=== PATIENT | female | born 1975 | race Caucasian/White ===

== ENCOUNTER → 2016-10-29 | Outpatient (CLI) | payer OTHER ==
[~2016-10-29] MED LIST: ASPIR 8181 MG PO; IMDUR ER TAB 6060 MG PO; LIPITOR TAB 2020 MG PO; LISINOPRIL20 MG PO; LOPRESSOR50 MG PO; LOSARTAN-HCTZ1 EACH PO; NITROSTAT0.4 MG SL; NORVASC 5 MG TAB5 MG PO; PLAVIX 75 MG TA75 MG PO; RANEXA500 MG PO; REMERON15 MG PO; TEGRETOL XR100 MG PO; WELLBUTRIN XL150 MG PO
== END ==
LOC: EMI 08:56
DX: R51 Headache (principal); R42 Dizziness and giddiness; M54.2 Cervicalgia
CPT/HCPCS: 70551

== ENCOUNTER → 2021-09-09 | Outpatient (CLI) | payer OTHER ==
[~2021-09-09] MED LIST changes: +ALBUTEROL2.5 MG/3 M INH; +BRILINTA 90 MG90 MG PO; +CETIRIZINE HCL5 MG PO; +CLOPIDOGREL75 MG PO; +COZAAR100 MG PO; +CRESTOR20 MG PO; +GINKGO BILOBA120 M1 PO; +HYDROCHLOROTH12.5 MG PO; +ISOSORBIDE MONO60 MG PO; +LIPITOR TAB 1010 MG PO; -LOSARTAN-HCTZ1 EACH PO; +NITROFURANTOIN100 MG PO; +PROAIR DIGIHAL90 MCG INH; +RANEXA1000 MG PO; +TRILEPTAL300 MG PO; +ZOFRAN ODT 4 MG4 MG PO; +[UNRECOGNIZED DRUG - REMARK]
[2021-09-09 13:31] LABS: HEMOGLOBIN 15.4 gm/dl (12.3-15.3); RED BLOOD COUNT 5.04 M/UL (4.00-5.10); WHITE BLOOD COUNT 14.8 K/UL (4.5-11.0)
[2021-09-09 13:54] LABS: BUN/CREATININE RATIO 17 (0-10)
== END ==
LOC: LAB 13:02
PROVIDERS: Internal Medicine Interventional Cardiology
DX: I10 Essential (primary) hypertension (principal); I25.119 Atherosclerotic heart disease of native coronary artery with unspecified angina pectoris; I21.9 Acute myocardial infarction, unspecified; I73.9 Peripheral vascular disease, unspecified; E78.5 Hyperlipidemia, unspecified; F41.9 Anxiety disorder, unspecified; F32.A Depression, unspecified; R00.2 Palpitations; R94.39 Abnormal result of other cardiovascular function study
CPT/HCPCS: 36415; 80048; 85025; 85610; 85730; 93005

== ENCOUNTER 2021-09-14 06:30 | Outpatient (CLI) | payer OTHER ==
[~2021-09-14] VITALS: Ht 165.1 cm; Wt 62.1 kg
[~2021-09-14 06:30] MED LIST changes: -ALBUTEROL2.5 MG/3 M INH; -CETIRIZINE HCL5 MG PO; -CLOPIDOGREL75 MG PO; -CRESTOR20 MG PO; -GINKGO BILOBA120 M1 PO; -HYDROCHLOROTH12.5 MG PO; -ISOSORBIDE MONO60 MG PO; -NITROFURANTOIN100 MG PO; -PROAIR DIGIHAL90 MCG INH; -ZOFRAN ODT 4 MG4 MG PO
[2021-09-14] MEDS ORDERED: ALBUTEROL2.5 MG/3 M INH (07:07)
[2021-09-14] MEDS ORDERED: CETIRIZINE HCL5 MG PO (07:09)
[2021-09-14] MEDS ORDERED: CLOPIDOGREL75 MG PO (07:12)
[2021-09-14] MEDS ORDERED: HYDROCHLOROTH12.5 MG PO ×2 (07:12→11:46)
[2021-09-14] MEDS ORDERED: ISOSORBIDE MONO60 MG PO (07:13)
[2021-09-14] MEDS ORDERED: NITROFURANTOIN100 MG PO (07:14)
[2021-09-14] MEDS ORDERED: ZOFRAN ODT 4 MG4 MG PO (07:15)
[2021-09-14] MEDS ORDERED: CRESTOR20 MG PO (07:16)
[2021-09-14] MEDS ORDERED: PROAIR DIGIHAL90 MCG INH (07:16)
[2021-09-14] MEDS ORDERED: GINKGO BILOBA120 M1 PO (07:17)
[2021-09-14 12:16] LABS: RED BLOOD COUNT 4.54 M/UL (4.00-5.10); WHITE BLOOD COUNT 8.1 K/UL (4.5-11.0)
[2021-09-14 12:57] LABS: BUN/CREATININE RATIO 14 (0-10)
[2021-09-15 02:11] LABS: RED BLOOD COUNT 4.25 M/UL (4.00-5.10); WHITE BLOOD COUNT 7.7 K/UL (4.5-11.0)
[2021-09-15 04:30] LABS: BUN/CREATININE RATIO 14 (0-10)
== END 2021-09-15 03:37 | disposition left against medical advice (07) ==
LOC: CATH 06:30 → PROG CARE 11:09 → CATH 09-15 03:37
PROVIDERS: Internal Medicine Interventional Cardiology
DX: T82.855A Stenosis of coronary artery stent, initial encounter (principal); Y71.2 Prosthetic and other implants, materials and accessory cardiovascular devices associated with adverse incidents; Y83.2 Surgical operation with anastomosis, bypass or graft as the cause of abnormal reaction of the patient, or of later complication, without mention of misadventure at the time of the procedure; I25.798 Atherosclerosis of other coronary artery bypass graft(s) with other forms of angina pectoris; F41.9 Anxiety disorder, unspecified; E78.00 Pure hypercholesterolemia, unspecified; I73.9 Peripheral vascular disease, unspecified; I10 Essential (primary) hypertension; F17.200 Nicotine dependence, unspecified, uncomplicated; I25.2 Old myocardial infarction; Z20.822 Contact with and (suspected) exposure to COVID-19; Z88.6 Allergy status to analgesic agent; Z88.5 Allergy status to narcotic agent; Z88.0 Allergy status to penicillin; Z88.8 Allergy status to other drugs, medicaments and biological substances; Z79.02 Long term (current) use of antithrombotics/antiplatelets; Z79.82 Long term (current) use of aspirin; Z82.49 Family history of ischemic heart disease and other diseases of the circulatory system
CPT/HCPCS: 80048; 82550; 82553; 85027; 85347; 92920; 93005; 94760; 99152; 99153; C1725; C1769; C1894; J1644; J2250; J3010; J3246; J7030; J7040; Q9967; U0002